=== PATIENT | male | born 2000 | race Caucasian/White ===

== ENCOUNTER 2022-10-24 10:40 | Outpatient (CLI) | payer BC, SELFPAY | END 2022-10-24 10:41 | disposition home or self-care (01) | PROVIDERS: PCP Nurse Practitioner Family; Visit Provider Nurse Practitioner Family | DX: Z00.00 Encounter for general adult medical examination without abnormal findings (principal); E78.2 Mixed hyperlipidemia; Z13.228 Encounter for screening for other metabolic disorders | CPT/HCPCS: 80053; 80061 ==

== ENCOUNTER 2023-01-30 09:00 | Outpatient (CLI) | payer BC, SELFPAY | END 2023-01-30 09:01 | disposition home or self-care (01) | PROVIDERS: PCP Nurse Practitioner Family; Referring Provider Nurse Practitioner Family; Visit Provider Nurse Practitioner Family | DX: E78.2 Mixed hyperlipidemia (principal) | CPT/HCPCS: 80061 ==

== ENCOUNTER 2023-10-30 08:00 | Outpatient (CLI) | payer BC, SELFPAY | END 2023-10-30 08:01 | disposition home or self-care (01) | PROVIDERS: PCP Nurse Practitioner Family; Visit Provider Nurse Practitioner Family | DX: Z00.00 Encounter for general adult medical examination without abnormal findings (principal); E78.2 Mixed hyperlipidemia; Z13.228 Encounter for screening for other metabolic disorders | CPT/HCPCS: 80053; 80061 ==

== ENCOUNTER 2024-01-22 15:35 | Outpatient (CLI) | payer BC, SELFPAY | END 2024-01-22 15:36 | disposition home or self-care (01) | PROVIDERS: PCP Nurse Practitioner Family; Visit Provider Nurse Practitioner Family | DX: E78.2 Mixed hyperlipidemia (principal) | CPT/HCPCS: 80061 ==

== ENCOUNTER 2024-04-01 17:07 | Outpatient (CLI) | payer BC, SELFPAY | END 2024-04-01 17:08 | disposition home or self-care (01) | PROVIDERS: PCP Nurse Practitioner Family; Visit Provider Nurse Practitioner Family | DX: E78.2 Mixed hyperlipidemia (principal) | CPT/HCPCS: 80061; 83695 ==

== ENCOUNTER 2024-11-03 08:18 | Outpatient (CLI) | payer BC, SELFPAY ==
[2024-11-03 14:59] LABS: Chlamydia DNA Amplified* NOT DETECTED (No Detected); GC DNA Amplified* NOT DETECTED (No Detected)
== END 2024-11-03 08:19 | disposition home or self-care (01) ==
PROVIDERS: PCP Nurse Practitioner Family; Visit Provider Nurse Practitioner Family
DX: Z00.00 Encounter for general adult medical examination without abnormal findings (principal); E78.2 Mixed hyperlipidemia
CPT/HCPCS: 80053; 80061; 87491; 87591